=== PATIENT | female | born 1985 | race Caucasian/White ===

== ENCOUNTER 2023-01-11 16:11 | Outpatient (CLI) | payer BC, SELFPAY | END 2023-01-11 16:12 | disposition home or self-care (01) | PROVIDERS: PCP Nurse Practitioner Family; Visit Provider Nurse Practitioner Family | DX: N92.1 Excessive and frequent menstruation with irregular cycle (principal); R53.83 Other fatigue; I10 Essential (primary) hypertension | CPT/HCPCS: 80048; 84443; 85025 ==

== ENCOUNTER 2023-01-18 15:08 | Outpatient (CLI) | payer BC, SELFPAY ==
--- NOTE | 2023-01-18 16:00 | CRLHL7_ITS ---
For Patients: As a result of the Century Cures Act, medical imaging exams and procedure reports are released immediately into your electronic medical record. You may view this report before your referring provider. If you have questions, please contact your health care provider. INDICATION: Abnormal bleeding TECHNIQUE: Ultrasound pelvis transabdominal and transvaginal for better assessment or to better visualize the endometrium. Real time sonographic images with Spectral and color Doppler imaging of the ovaries were obtained. COMPARISON: None FINDINGS: Uterus: 9.7 centimeter x 4.8 centimeter x 4.8 centimeter. Normal echotexture of the myometrium. No masses. Endometrium: Transvaginal imaging was performed to better evaluate the endometrium. 1.9 centimeter in thickness. No sign of endometrial mass or fluid. Three 4 centimeter simple cyst. Right ovary: 8.7 centimeter x 3.5 centimeter x 3.0 centimeter. No ovarian or adnexal masses. Normal arterial and venous blood flow. Left ovary: History of left oophorectomy. Cul-de-sac: No significant free fluid. IMPRESSION: Thickened endometrium at 1.9 centimeters. 3.1 centimeter simple right ovarian cyst. History of left oophorectomy. Dictated by Ady Hyde MD @ 01/18/2023 4:24:41 PM (Electronically Signed)
== END 2023-01-18 15:09 | disposition home or self-care (01) ==
LOC: US 15:10
PROVIDERS: PCP Nurse Practitioner Family; Visit Provider Nurse Practitioner Family
DX: N92.1 Excessive and frequent menstruation with irregular cycle (principal); R93.89 Abnormal findings on diagnostic imaging of other specified body structures; N83.201 Unspecified ovarian cyst, right side
CPT/HCPCS: 76830; 76856

== ENCOUNTER 2023-06-14 14:52 | Outpatient (CLI) | payer OTHER, SELFPAY | END 2023-06-14 14:53 | disposition home or self-care (01) | PROVIDERS: PCP Nurse Practitioner Family; Visit Provider Obstetrics & Gynecology | DX: N92.1 Excessive and frequent menstruation with irregular cycle (principal); R53.83 Other fatigue; I10 Essential (primary) hypertension | CPT/HCPCS: 84146; 84443 ==

== ENCOUNTER 2025-04-25 09:26 | Outpatient (CLI) | payer OTHER, SELFPAY | END 2025-04-25 09:27 | disposition home or self-care (01) | PROVIDERS: PCP Nurse Practitioner Family; Visit Provider Nurse Practitioner Family | DX: I10 Essential (primary) hypertension (principal); R06.00 Dyspnea, unspecified | CPT/HCPCS: 80053; 81001; 83880; 84443; 84484; 85025; 87086 ==